=== PATIENT | female | born 1990 | race Caucasian/White ===

== ENCOUNTER → 2023-11-28 14:45 | Outpatient (REF) | payer OTHER, SELFPAY | LOC: PNTC 14:45 | PROVIDERS: ATTENDING PHYSICIAN Obstetrics & Gynecology | DX: Z36.0 Encounter for antenatal screening for chromosomal anomalies (principal); Z36.82 Encounter for antenatal screening for nuchal translucency | CPT/HCPCS: 76801; 76813 ==

== ENCOUNTER → 2024-01-16 10:54 | Outpatient (REF) | payer OTHER, SELFPAY | LOC: PNTC 10:54 | PROVIDERS: ATTENDING PHYSICIAN Obstetrics & Gynecology | DX: O99.320 Drug use complicating pregnancy, unspecified trimester (principal) | CPT/HCPCS: 76811 ==

== ENCOUNTER 2024-05-25 04:21 | Inpatient (IN) | payer OTHER, SELFPAY ==
[2024-05-25 04:35] VITALS: BMI 30.1
[2024-05-25 05:29] LABS: % Basophils 0.3 % (0-2); % Eosinophils 0.6 % (0-6); % Immature Granulocytes 1.2 % (0-0.5); % Monocytes 7.6 % (1.7-9.3); % Neutrophils 72.3 % (42.2-75.2); Absolute Eosinophils 0.1 10^3/uL (0-0.7); Absolute Immature Granulocytes 0.1 10^3/uL (0-0.05); Absolute Lymphocytes 1.6 10^3/uL (1.2-3.4); Absolute Monocytes 0.7 10^3/uL (0.1-0.6); Absolute Neutrophils 6.5 10^3/uL (1.4-6.5); Hematocrit 34.3 % (37.0-47.0); Hemoglobin 11.7 g/dL (12.0-16.0); Mean Corp Hgb Conc. 34.1 g/dL (33.0-37.0); Mean Corpuscular Hgb 29.3 pg (27.0-31.0); Mean Corpuscular Volume 85.8 fL (81.0-99.0); Mean Platelet Volume 11.8 fL (7.4-10.4); Nucleated Red Blood Cells % 0 %; Platelet Count 212 10^3/uL (130-400); Red Cell Dist. Width 13.7 % (11.5-14.5)
[2024-05-25 06:08] VITALS: BP 132/87
[2024-05-25] MEDS: LR 1000 IV ×2 (14:00→18:38)
[2024-05-25] MEDS: PITOCIN 30 UNITS/NSS 500 ML IV (14:00)
[2024-05-25] MEDS: FENTANYL/BUPIVACAINE 100 EPIDURAL (17:40)
[2024-05-25] MEDS: SUBLIMAZE 100 MCG EPIDURAL (17:40)
[2024-05-26] MEDS: XYLOCAINE-MPF 1% VIAL 30 ML INFIL (01:45)
[2024-05-26] MEDS: PRENATAL PLUS 1 TABLET PO (07:51)
[2024-05-26] MEDS: SENOKOT-S 1 TABLET PO (13:30)
[2024-05-27 03:25] LABS: Hematocrit 32.9 % (37.0-47.0); Hemoglobin 11.3 g/dL (12.0-16.0)
[2024-05-27] MEDS: PRENATAL PLUS 1 TABLET PO (08:07)
[2024-05-27] MEDS: SENOKOT-S 1 TABLET PO (21:54)
[2024-05-28] MEDS: PRENATAL PLUS 1 TABLET PO (08:57)
== END 2024-05-28 13:20 | disposition home or self-care (01) | DRG 807 ==
LOC: LDRP 04:21
PROVIDERS: Obstetrics & Gynecology; ADMITTING PHYSICIAN Obstetrics & Gynecology; ATTENDING PHYSICIAN Obstetrics & Gynecology
PROC: 10E0XZZ Delivery of Products of Conception, External Approach (ICD-10-PCS; 2024-05-26)
PROC: 0KQM0ZZ Repair Perineum Muscle, Open Approach (ICD-10-PCS; 2024-05-26)
DX: O70.1 Second degree perineal laceration during delivery (principal); Z37.0 Single live birth; Z3A.38 38 weeks gestation of pregnancy
CPT/HCPCS: 85014; 85018; 85025; 86780; 86850; 86900; 86901